=== PATIENT | female | born 1965 | race Caucasian/White ===

== ENCOUNTER 2017-06-28 21:48 | Emergency (ER) | payer MEDICAID ==
[~2017-06-28] VITALS: Ht 149.9 cm; Wt 61.7 kg
[~2017-06-28 21:48] MED LIST: CEPHALEXIN500 MG ORAL; NORCO 5-325 TA1 EACH ORAL; PHENAZOPYRIDIN200 MG ORAL
[2017-06-28] MEDS ORDERED: ZANTAC150 MG ORAL (21:58)
[2017-06-28] MEDS ORDERED: NAPROXEN500 M2 ORAL (21:58)
[2017-06-28 22:00] VITALS: BP 124/78
[2017-06-28 22:20] VITALS: BP 124/78
[2017-06-28] MEDS ORDERED: CYCLOBENZAPRINE10 MG ORAL (22:27)
[2017-06-28] MEDS ORDERED: IBUPROFEN600 MG ORAL (22:27)
--- NOTE | 2017-06-29 04:49 | Emergency Room Report ---
History of Present Illness General Chief Complaint: Back Pain-No Injury Source: Patient Present Illness HPI 52-year-old female presents to ED for evaluation. Patient states she is having back pain started yesterday. Status notes the left upper back, 9 out of 10, nonradiating. Worse with twisting and bending. Denies chest pain or shortness of breath. No other aggravating relieving factors. Denies any other associated symptoms Allergies: Coded Allergies: MORPHINE (Verified Allergy, Unknown, 06/28/17) Patient History Past Medical History: GERD Past Surgical History: none Pertinent Family History: none Social History: Denies: smoking, alcohol use, drug use Now: No Immunizations: UTD Reviewed Nursing Documentation: PMH: Agreed, PSxH: Agreed Nursing Documentation-PMH Past Medical History: No History, Except For Hx Gastrointestinal Problems: Yes - Gastritis Review of Systems All Other Systems: negative except mentioned in HPI Physical Exam Vital Signs Date Time Temp Pulse Resp B/P (MAP) Pulse Ox O2 Delivery O2 Flow Rate FiO2 06/28/17 21:54 97.9 81 15 129/80 99 Room Air Sp02 EP Interpretation: reviewed, normal General Appearance: no apparent distress, alert, GCS 15, non-toxic Head: normocephalic Eyes: bilateral eye normal inspection, bilateral eye PERRL ENT: normal ENT inspection Neck: full range of motion, supple, no bony tend, supple/symm/no masses Respiratory: chest non-tender, lungs clear, normal breath sounds, speaking full sentences Cardiovascular #1: regular rate, rhythm, no edema Gastrointestinal: normal inspection Rectal: deferred Genitourinary: no CVA tenderness, no vertebral tenderness Musculoskeletal: back normal, gait/station normal, normal range of motion, tender - paraspinal thoracic pain. no vertebral body tenderness Neurologic: alert, oriented x3, responsive, motor strength/tone normal, sensory intact, speech normal Psychiatric: normal inspection Skin: normal inspection Lymphatic: normal inspection Medical Decision Making Diagnostic Impression: Primary Impression: Muscle strain ER Course Hospital Course 52-year-old female presents ED complaining of upper back pain. No evidence of trauma Differential diagnoses include: pyelonephritis, kidney stone, muscle strain, Lspine fracture Clinical course Patient placed on stretcher. After initial history, physical exam reveals a middle-aged female in no acute distress there is no vertebral body tenderness. No reproducible chest wall pain. There is some paraspinal thoracic pain on the left side underneath the left shoulder blade. Consistent with muscular strain. Diagnosis - muscle strain Stable and discharged to home with prescription for Motrin, Flexeril. Followup with PMD. Return to ED if symptoms recur or worsen Last Vital Signs Date Time Temp Pulse Resp B/P (MAP) Pulse Ox O2 Delivery O2 Flow Rate FiO2 06/28/17 22:20 97.9 72 15 124/78 99 Room Air Status: improved Disposition: HOME, SELF-CARE Condition: Stable Scripts Cyclobenzaprine Hcl* (FLEXERIL*) 10 Mg Tablet 10 MG ORAL TID Y for Muscle Spasm, #20 TAB Prov: SLY TEE M.D. 06/28/17 Ibuprofen* (MOTRIN*) 600 Mg Tablet 600 MG ORAL Q8H Y for For Pain, #30 TAB 0 Refills Prov: SLY TEE M.D. 06/28/17 Referrals: NON PHYSICIAN (PCP) Patient Instructions: Chest Wall Pain, Vnix-ue-Deoh SLY TEE M.D. Jun 29, 2017 04:49
== END 2017-06-28 22:20 | disposition home or self-care (01) ==
LOC: EMR 22:18
DX: S29.012A Strain of muscle and tendon of back wall of thorax, initial encounter (principal); X50.9XXA Other and unspecified overexertion or strenuous movements or postures, initial encounter; Y92.9 Unspecified place or not applicable; K21.9 Gastro-esophageal reflux disease without esophagitis; Z87.19 Personal history of other diseases of the digestive system; Z88.5 Allergy status to narcotic agent
CPT/HCPCS: 99283

== ENCOUNTER 2017-07-15 18:15 | Emergency (ER) | payer MEDICAID ==
[~2017-07-15] VITALS: Ht 149.9 cm; Wt 62.6 kg
[~2017-07-15 18:15] MED LIST changes: +CYCLOBENZAPRINE10 MG ORAL; +IBUPROFEN600 MG ORAL; +NAPROXEN500 M2 ORAL; +ZANTAC150 MG ORAL
[2017-07-15] MEDS ORDERED: ZANTAC150 MG ORAL (18:24)
[2017-07-15] MEDS ORDERED: AMITRIPTYLINE25 MG ORAL (18:24)
[2017-07-15] MEDS ORDERED: Sodium Chloride 500ML 500 ML IV ONE (18:35)
[2017-07-15] MEDS ORDERED: Meclizine 25mg tab ORAL ONE (18:45)
[2017-07-15] MEDS ORDERED: Ketorolac 30mg Inj IV ONE (18:45)
[2017-07-15 19:11] VITALS: BP 145/92
[2017-07-15] MEDS ORDERED: AMOXICILLIN500 MG ORAL (19:51)
[2017-07-15] MEDS ORDERED: MECLIZINE HCL25 MG ORAL (19:51)
[2017-07-15] MEDS ORDERED: ZOFRAN ODT4 MG ORAL (19:51)
[2017-07-15 20:06] VITALS: BP 163/90
[2017-07-15 20:09] VITALS: BP 163/90
--- NOTE | 2017-07-16 14:15 | Emergency Room Report ---
History of Present Illness General Chief Complaint: Dizziness Source: Patient Present Illness HPI 52-year-old female presents to ED for evaluation. Patient presenting with dizziness times one day. Starting yesterday. room spinning sensation worse with sudden head turning and position change. Also complaining of right ear pain. Throbbing, 10 out of 10, nonradiating. Denies neck stiffness. Denies fevers or chills. Denies headache. Patient states similar episode happened her a few years ago. Was told that she had ear infection which triggered vertigo. Denies chest pain or shortness of breath. No other aggravating relieving factors. Denies any other associated symptom Allergies: Coded Allergies: MORPHINE (Verified Allergy, Unknown, 06/28/17) Patient History Past Medical History: GERD Past Surgical History: none Pertinent Family History: none Social History: Denies: smoking, alcohol use, drug use Last Menstrual Period: 06/28/17 Now: No Immunizations: UTD Reviewed Nursing Documentation: PMH: Agreed, PSxH: Agreed Nursing Documentation-PMH Past Medical History: No History, Except For Hx Gastrointestinal Problems: Yes - Gastritis Review of Systems All Other Systems: negative except mentioned in HPI Physical Exam Vital Signs Date Time Temp Pulse Resp B/P (MAP) Pulse Ox O2 Delivery O2 Flow Rate FiO2 07/15/17 18:20 98.5 84 21 145/92 99 Room Air 98.4 Sp02 EP Interpretation: reviewed, normal General Appearance: no apparent distress, alert, GCS 15, non-toxic Head: normocephalic, atraumatic Eyes: bilateral eye normal inspection, bilateral eye PERRL ENT: hearing grossly normal, normal pharynx, no angioedema, normal voice Neck: full range of motion, supple/symm/no masses Respiratory: chest non-tender, lungs clear, normal breath sounds, speaking full sentences Cardiovascular #1: regular rate, rhythm, no edema Cardiovascular #2: 2+ carotid (R), 2+ carotid (L), 2+ radial (R), 2+ radial (L) , 2+ dorsalis pedis (R), 2+ dorsalis pedis (L) Gastrointestinal: normal bowel sounds, non tender, soft, non-distended, no guarding, no rebound Rectal: deferred Genitourinary: normal inspection, no CVA tenderness Musculoskeletal: back normal, gait/station normal, normal range of motion, non- tender Neurologic: alert, oriented x3, responsive, sap crm developer III-XII nml as tested, motor strength/tone normal, sensory intact, cerebellar normal, normal gait, speech normal Psychiatric: judgement/insight normal, memory normal, mood/affect normal, no suicidal/homicidal ideation Reflexes: 3+ bicep (R), 3+ bicep (L), 3+ tricep (R), 3+ tricep (L), 3+ knee (R) , 3+ knee (L) Skin: normal color, no rash, warm/dry, well hydrated Lymphatic: no adenopathy Medical Decision Making Diagnostic Impression: Primary Impression: Otitis media Qualified Codes: H66.90 - Otitis media, unspecified, unspecified ear Additional Impression: Vertigo ER Course Hospital Course 52-year-old female presents to ED complaining of dizziness, right ear pain Differential diagnoses include: MO/unstable angina, SVT, A. fib, V. 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 After initial history, physical exam reveals a middle-aged female in no acute distress. There is no nuchal rigidity. Cranial nerves II through XII grossly intact. Cerebellar function intact. Vertigo does worsen with sudden head movement Right tympanic membrane cloudy, erythematous. Consistent with otitis media. Findings consistent with vertigo likely triggered by the ear infection. I ordered IV fluids, meclizine, Toradol, Zofran Upon reassessment patient states his symptoms have improved. I believe patient is safe for discharge I. I feel this is a highly complex case requiring extensive working including EKG/Rhythm strip, Xray/CT/US, Blood/urine lab work, repeat exams while in ED, and administration of strong opiates/narcotics for pain control, admission to hospital or close patient follow up. Diagnosis - vertigo, otitis media stable and discharged to home with prescription for meclizine, zofran, amoxicillin. Followup with PMD. Return to ED if symptoms recur or worsen Last Vital Signs Date Time Temp Pulse Resp B/P (MAP) Pulse Ox O2 Delivery O2 Flow Rate FiO2 07/15/17 20:09 97.6 78 16 163/90 99 Room Air 97.6 Status: improved Disposition: HOME, SELF-CARE Condition: Stable Scripts Amoxicillin* (AMOXIL*) 500 Mg Capsule 500 MG ORAL THREE TIMES A DAY for 10 Days, #30 CAP Prov: SLY TEE M.D. 07/15/17 Ondansetron Odt* (ZOFRAN ODT*) 4 Mg Tab.rapdis 4 MG ORAL Q6H Y for Nausea & Vomiting, #30 TAB 0 Refills Prov: SLY TEE M.D. 07/15/17 Meclizine Hcl* (MECLIZINE*) 25 Mg Tablet 25 MG ORAL THREE TIMES A DAY for 7 Days, TAB Prov: SLY TEE M.D. 07/15/17 Patient Instructions: Vertigo SLY TEE M.D. Jul 16, 2017 14:15
== END 2017-07-15 20:09 | disposition home or self-care (01) ==
LOC: EMR 18:30
DX: H66.91 Otitis media, unspecified, right ear (principal); R42 Dizziness and giddiness; Z88.5 Allergy status to narcotic agent
CPT/HCPCS: 96374; 96375; 99284; J1885; J2405

== ENCOUNTER 2017-11-08 20:53 | Emergency (ER) | payer MEDICAID ==
[~2017-11-08] VITALS: Ht 149.9 cm; Wt 62.6 kg
[~2017-11-08 20:53] MED LIST changes: +AMITRIPTYLINE25 MG ORAL; +AMOXICILLIN500 MG ORAL; +MECLIZINE HCL25 MG ORAL; +ZOFRAN ODT4 MG ORAL
[2017-11-08] MEDS ORDERED: fentaNYL 100 mcg/2 mL IV ONE (21:30)
--- NOTE | 2017-11-08 22:21 | Diagnostic Imaging Report ---
EXAM: XR Left Ankle Complete, 3 or More Views CLINICAL HISTORY: TRAUMA TECHNIQUE: Frontal, lateral and oblique views of the left ankle. COMPARISON: No relevant prior studies available. FINDINGS: Bones/joints: No acute displaced fracture or dislocation. Soft tissues: Soft tissue swelling. IMPRESSION: No acute displaced fracture or dislocation.
--- NOTE | 2017-11-08 23:00 | Emergency Room Report ---
History of Present Illness General Chief Complaint: Lower Extremity Injury Source: Patient, Medical Record Present Illness HPI Patient presents with left ankle pain. She missed a step and went to steps down and landed with her full weight on her left ankle and had an inversion injury. Chest pain on the outside of her ankle and towards the heel. There is also some bruising there. She denies loss of consciousness. She caught herself with her hand. The pain is severe at this time, throbbing worse when she has the ankle dependent and radiating somewhat into the lower leg. She rates the pain 10/10. She is not taking blood thinners at this time. She's not fractured or injured the ankle in the past. She states she is unable to ambulate at this time. She has a history of gastritis and in discussing treatment she states she can't take nonsteroidal anti-inflammatories. In addition she reports multiple allergies or adverse reactions to medications. Allergies: Coded Allergies: MORPHINE (Verified Allergy, Unknown, 06/28/17) Patient History Past Medical History: see triage record Social History: Denies: smoking Social History Narrative with daughter Last Menstrual Period: 10/13/2017 Now: No Reviewed Nursing Documentation: PMH: Agreed; PSxH: Agreed Nursing Documentation-PMH Past Medical History: No History, Except For Hx Hypertension: Yes Hx Gastrointestinal Problems: Yes - Gastritis Review of Systems Constitutional: Denies: fever Eye: Denies: blurred vision Cardiovascular: Denies: chest pain Gastrointestinal: Denies: abdominal pain Musculoskeletal: Reports: see HPI Skin: Reports: see HPI Neurological: Denies: numbness Hematologic/Lymphatic: Reports: see HPI Physical Exam Vital Signs Date Time Temp Pulse Resp B/P (MAP) Pulse Ox O2 Delivery O2 Flow Rate FiO2 11/08/17 20:57 98.3 77 20 148/76 97 Room Air 98.2 Sp02 EP Interpretation: reviewed, normal General Appearance: well appearing, no apparent distress, GCS 15 Head: normocephalic, atraumatic Eyes: bilateral eye normal inspection, bilateral eye PERRL ENT: hearing grossly normal, normal voice, moist mucus membranes Neck: full range of motion, supple, no bony tend Respiratory: chest non-tender, no respiratory distress, speaking full sentences Cardiovascular #1: regular rate, rhythm Cardiovascular #2: 2+ radial (L), 2+ dorsalis pedis (L) - Good capillary refill Gastrointestinal: normal inspection, soft Musculoskeletal: back normal, digits/nails normal, no calf tenderness, pelvis stable, swelling - Left lateral ankle however ligaments are stable. Neurologic: alert, motor strength/tone normal, sensory intact, speech normal Psychiatric: mood/affect normal Skin: hematoma - Lateral ankle near heel Medical Decision Making Diagnostic Impression: Primary Impression: Ankle sprain Qualified Codes: S93.412A - Sprain of calcaneofibular ligament of left ankle, initial encounter ER Course Patient presents with ankle injury after fall. Differential includes fracture, sprain, contusion. X-rays are indicated based on [place] ankle rules. The patient is complaining about severe pain and requesting a shot. She initially requested Demerol. I recommended Dilaudid however this is not available. Fentanyl was ordered. X-rays revealed no fracture but soft tissue swelling. An Gerard was applied and crutches given. Tension was excellent and neurovascular was checked by me and normal. The patient was improved with decreased pain. Follow-up was discussed with the patient along with treatment recommendations. Patient stable for outpatient observation and treatment. Other X-Ray Diagnostic Results Other X-Ray Diagnostic Results : # of Views/Limited Vs Complete: 3 View Indication: Other EP Interpretation: Yes Interpretation: no dislocation, no fractures, other - Soft tissue swelling Impression: Other Electronically Signed by: Electronically signed by Constantino Mayo MD Last Vital Signs Date Time Temp Pulse Resp B/P (MAP) Pulse Ox O2 Delivery O2 Flow Rate FiO2 11/08/17 23:03 97.6 78 18 132/74 98 Room Air 97.6 Status: improved Disposition: HOME, SELF-CARE Condition: Improved Scripts Hydrocodone Bit/Acetaminophen 5-325* (NORCO 5-325*) 1 Each Tablet 1 TAB ORAL Q6H PRN for For Pain, #14 TAB 0 Refills Prov: Constantino Mayo M.D. 11/08/17 Referrals: [facility],REFERRING (PCP) Constantino Mayo M.D. Nov 08, 2017 23:00
[2017-11-08 23:03] VITALS: BP 132/74
[2017-11-08] MEDS ORDERED: NORCO 5-325 TA1 EACH ORAL (23:03)
== END 2017-11-08 23:05 | disposition home or self-care (01) ==
LOC: EMR 21:02
DX: S93.402A Sprain of unspecified ligament of left ankle, initial encounter (principal); W10.9XXA Fall (on) (from) unspecified stairs and steps, initial encounter; Y92.9 Unspecified place or not applicable; Z88.5 Allergy status to narcotic agent; I10 Essential (primary) hypertension
CPT/HCPCS: 73610; 96374; 99283; J3010

== ENCOUNTER 2018-02-02 19:35 | Emergency (ER) | payer MEDICAID ==
[~2018-02-02] VITALS: Ht 149.9 cm; Wt 63.5 kg
[2018-02-02 19:40] VITALS: BP 140/80
[2018-02-02] MEDS ORDERED: Ketorolac 60mg Inj IM ONE (20:00)
[2018-02-02] MEDS ORDERED: Cyclobenzaprine 10mg Tab ORAL ONE (20:00)
--- NOTE | 2018-02-02 20:09 | Emergency Room Report ---
History of Present Illness General Chief Complaint: Back Pain-No Injury Source: Patient Present Illness HPI 52-year-old female with history of hypertension and gastritis, remote history of hysterectomy, presents with low back pain that started 1 day ago reports it was worse with any movement, denies urinary habit changes, denies nausea, vomiting, fever, and shortness of breath, pain anywhere in her body other than her low back, but it does radiate in every direction she reports, she denies any falls, injuries, she does report she sits for long hours and whenever she stands up it seems to hurt a lot then, she is tried Aleve without much relief today. His any fevers, IV drug use, numbness, tingling, weakness, trauma, incontinence. Allergies: Coded Allergies: MORPHINE (Verified Allergy, Unknown, 06/28/17) Patient History Past Medical History: see triage record Last Menstrual Period: September 2017 Now: No Reviewed Nursing Documentation: PMH: Agreed; PSxH: Agreed Nursing Documentation-PMH Past Medical History: No History, Except For Hx Hypertension: Yes Hx Gastrointestinal Problems: Yes - Gastritis Review of Systems All Other Systems: negative except mentioned in HPI Physical Exam Vital Signs Date Time Temp Pulse Resp B/P (MAP) Pulse Ox O2 Delivery O2 Flow Rate FiO2 02/02/18 19:39 97.4 86 16 140/80 100 Room Air 97.3 Sp02 EP Interpretation: reviewed, normal General Appearance: alert, non-toxic, mild distress Head: normocephalic Eyes: bilateral eye normal inspection, bilateral eye PERRL, bilateral eye EOMI ENT: normal ENT inspection, hearing grossly normal, normal pharynx, no angioedema, normal voice, moist mucus membranes Neck: normal inspection, full range of motion, supple, supple/symm/no masses Respiratory: chest non-tender, lungs clear, normal breath sounds, chest symmetrical, palpation of chest normal Cardiovascular #1: normal peripheral pulses, regular rate, rhythm Cardiovascular #2: 2+ radial (R), 2+ radial (L) Gastrointestinal: normal inspection, non tender, soft, no mass, no guarding, no rebound Rectal: deferred Genitourinary: normal inspection, no CVA tenderness Musculoskeletal: back normal, gait/station normal, normal range of motion, non- tender, no calf tenderness, Leslie's Sign negative Neurologic: alert, responsive, product development III-XII nml as tested, motor strength/tone normal, SLR negative - Positive bilaterally, sensory intact, speech normal Psychiatric: judgement/insight normal, memory normal, mood/affect normal, anxious Skin: normal color, no rash, warm/dry, normal turgor Lymphatic: no adenopathy Medical Decision Making Diagnostic Impression: Primary Impression: UTI (urinary tract infection) Additional Impressions: Muscle strain Back pain ER Course Patient found to have normal x-ray, but urinalysis consistent with infection, possible pyelonephritis even, but patient is well-appearing with no major medical comorbidities, other than hypertension, will discharge with antibiotics , analgesics, follow-up with PMD in 2-3 days for repeat urinalysis. Other X-Ray Diagnostic Results Other X-Ray Diagnostic Results : X-Ray ordered: L-spine # of Views/Limited Vs Complete: 3 View, Limited Indication: Pain EP Interpretation: Yes Interpretation: no dislocation, no soft tissue swelling, no fractures, nonspecific bowel gas, no sbo Impression: No acute disease Electronically Signed by: Matteo Painting MD Last Vital Signs Date Time Temp Pulse Resp B/P (MAP) Pulse Ox O2 Delivery O2 Flow Rate FiO2 02/02/18 19:40 97.3 86 16 140/80 100 Room Air 97.3 Disposition: HOME, SELF-CARE Condition: Stable MATTEO PAINTING M.D Feb 02, 2018 20:09
[2018-02-02 20:21] LABS: APPEARANCE,URINE CLOUDY; BILIRUBIN, URINE NEGATIVE (NEGATIVE); GLUCOSE, URINE (UA) 3+ (NEGATIVE); KETONES,URINE 1+ (NEGATIVE); LEUKOCYTE ESTERASE ,URINE 2+ (NEGATIVE); NITRITE,URINE NEGATIVE (NEGATIVE); PH,URINE 5 (4.5-8.0); PROTEIN,URINE 1+ (NEGATIVE); UROBILINOGEN,URINE 1 MG/DL (0.0-1.0)
[2018-02-02 20:31] LABS: COLOR,URINE YELLOW
[2018-02-02] MEDS ORDERED: CIPRO500 MG PO (21:32)
[2018-02-02] MEDS ORDERED: CYCLOBENZAPRINE10 MG ORAL (21:32)
[2018-02-02] MEDS ORDERED: IBUPROFEN600 MG ORAL (21:32)
[2018-02-02 21:47] VITALS: BP 131/88
--- NOTE | 2018-02-03 09:10 | Diagnostic Imaging Report ---
Indication: Back pain Technique: 3 views of the lumbar spine Comparison: None Findings: Bony alignment is normal. Vertebral body heights are preserved. The disc spaces are preserved. No acute fractures. No dislocations. There are cholecystectomy clips. Impression: No acute process
== END 2018-02-02 21:48 | disposition home or self-care (01) ==
LOC: EMR 20:16
DX: S39.012A Strain of muscle, fascia and tendon of lower back, initial encounter (principal); N39.0 Urinary tract infection, site not specified; M54.5 Low back pain; I10 Essential (primary) hypertension; Z90.710 Acquired absence of both cervix and uterus; Z88.5 Allergy status to narcotic agent; Y99.9 Unspecified external cause status; Y92.9 Unspecified place or not applicable
CPT/HCPCS: 72020; 81003; 87086; 96372; 99283

== ENCOUNTER 2019-03-19 19:22 | Emergency (ER) | payer MEDICAID ==
[~2019-03-19] VITALS: Ht 149.9 cm; Wt 62.6 kg
[~2019-03-19 19:22] MED LIST changes: +CIPRO500 MG PO
[2019-03-19] MEDS ORDERED: Bactrim-DS 1 tab ORAL ONE (19:45)
[2019-03-19] MEDS ORDERED: Cephalexin 500mg cap ORAL ONE (19:45)
[2019-03-19] MEDS ORDERED: Ketorolac 30mg Inj IM ONE (19:45)
[2019-03-19] MEDS ORDERED: HYDROcodone/Acetamin 5/325 tab ORAL ONE (20:00)
[2019-03-19 20:06] VITALS: BP 147/81
--- NOTE | 2019-03-19 20:06 | NUR ---
ED Nurse Note:pt. came with rightn upper leg insect bite and edema, given pain meds
--- NOTE | 2019-03-19 20:15 | Emergency Room Report ---
History of Present Illness General Chief Complaint: Skin Rash/Abscess Source: Patient Present Illness HPI 53 YO Female presents to the ED c/o Itching, swelling, and erythema of right inner thigh since last night. pt. reports feeling a painful insect bite/sting last night with some erythema. She reports upon awakening this am her symptoms have progressed. She states significant tenderness to the lightest of touch. Pt. denies fevers, chills or swollen tender lymph nodes. Denies lesions/rashes elsewhere on the body. Denies new medications or body washes or creams. Denies swelling of the lips, tongue , throat or airway. Denies wheezing, or shortness of breath. Denies recent travel, recent illness or ill contacts. denies blisters, oral lesions, or sloughing of the skin. Allergies: Coded Allergies: MORPHINE (Verified Allergy, Unknown, 06/28/17) Patient History Past Medical History: see triage record Past Surgical History: none Pertinent Family History: none Now: No Reviewed Nursing Documentation: PMH: Agreed; PSxH: Agreed Nursing Documentation-PMH Past Medical History: No History, Except For Hx Hypertension: Yes Hx Gastrointestinal Problems: Yes - Gastritis Review of Systems All Other Systems: negative except mentioned in HPI Physical Exam Vital Signs Date Time Temp Pulse Resp B/P (MAP) Pulse Ox O2 Delivery O2 Flow Rate FiO2 03/19/19 19:24 86.0 88 22 147/81 (103) 97 Room Air Sp02 EP Interpretation: reviewed, normal General Appearance: alert, GCS 15, non-toxic, mild distress Head: normocephalic, atraumatic Eyes: bilateral eye normal inspection, bilateral eye PERRL ENT: hearing grossly normal, normal pharynx, no angioedema, normal voice Neck: full range of motion Respiratory: lungs clear, normal breath sounds, no wheezing, speaking full sentences Cardiovascular #1: regular rate, rhythm, no edema Musculoskeletal: back normal, gait/station normal, normal range of motion, non- tender Neurologic: alert, oriented x3, responsive, motor strength/tone normal, sensory intact, normal gait, speech normal, grossly normal Psychiatric: judgement/insight normal Skin: other - 3.5 inch diameter localized area of erythema , tenderness, and warmth. no palpable fluctuance, no blisters, eschar or crusts. no LAD. Lymphatic: no adenopathy Medical Decision Making PA Attestation Dr. Bustamante is my supervising Physician whom patient management has been discussed with. Diagnostic Impression: Primary Impression: Cellulitis Qualified Codes: L03.115 - Cellulitis of right lower limb Additional Impression: Insect bite Qualified Codes: S70.361A - Insect bite (nonvenomous), right thigh, initial encounter; W57.XXXA - Bitten or stung by nonvenomous insect and other nonvenomous arthropods, initial encounter ER Course 53 YO Female presents to the ED c/o Itching, swelling, and erythema of right inner thigh since last night. pt. reports feeling a painful insect bite/sting last night with some erythema. She reports upon awakening this am her symptoms have progressed. She states significant tenderness to the lightest of touch. Pt. denies fevers, chills or swollen tender lymph nodes. Denies lesions/rashes elsewhere on the body. Denies new medications or body washes or creams. Denies swelling of the lips, tongue , throat or airway. Denies wheezing, or shortness of breath. Denies recent travel, recent illness or ill contacts. denies blisters, oral lesions, or sloughing of the skin Ddx considered but are not limited to cellulitis, scabies, insect bites, tic bites, spider bites, contact dermatitis, Drug reaction, allergic reaction, fungal infection, lice. Vital signs: are WNL, pt. is afebrile H&PE are most consistent with insect bite with moderate secondary bacterial infection.-Of the right inner thigh, no palpable fluctuance. ORDERS: none required at this time, the diagnosis is clinical ED INTERVENTIONS: -Keflex PO -Bactrim DS -Toradol IM -Walls PO Pt. to keep close eye for worsening of her symptoms, She was given strict ED return precautions. DISCHARGE: At this time pt. is stable for d/c to home. Will provide printed patient care instructions, and any necessary prescriptions. Care plan and follow up instructions have been discussed with the patient prior to discharge. Last Vital Signs Date Time Temp Pulse Resp B/P (MAP) Pulse Ox O2 Delivery O2 Flow Rate FiO2 03/19/19 20:06 86.0 80 22 147/81 97 Room Air Disposition: HOME, SELF-CARE Condition: Stable Scripts Ibuprofen* (MOTRIN*) 600 Mg Tablet 600 MG ORAL THREE TIMES A DAY, #30 TAB 0 Refills Prov: Barr,Sue PA 03/19/19 Hydrocodone Bit/Acetaminophen (HYDROCODON-ACETAMINOPHEN 5-300) 1 Each Tablet 1 EACH PO Q6HR, #6 TAB Prov: Sue Barr 03/19/19 Sulfamethoxazole/Trimethoprim Ds Tablet* (SULFAMETHOXAZOLE-TMP DS TABLET*) 1 Each Tablet 1 TAB ORAL TWICE A DAY for 7 Days, #14 TAB Prov: Sue Barr 03/19/19 Cephalexin* (KEFLEX*) 500 Mg Capsule 500 MG ORAL EVERY 12 HOURS for 7 Days, #14 CAP 0 Refills Prov: Sue Barr 03/19/19 Referrals: NON PHYSICIAN (PCP) Patient Instructions: Cellulitis, [id number], Insect Bite, [id number] Additional Instructions: Take medications as directed. Do not drink alcohol, drive, or operate heavy machinery while taking Walls as this may cause drowsiness. Follow up with a Primary Care Provider in 3-5 days, even if your symptoms have resolved. --Please review list of primary care clinics, if you do not already have a primary care provider Return sooner to ED if new symptoms occur, or current symptoms become worse. - Please note that this Emergency Department Report was dictated using [employer] processing plant operator technology software, occasionally this can lead to erroneous entry secondary to interpretation by the dictation equipment. Sue Barr Mar 19, 2019 20:15
[2019-03-19] MEDS ORDERED: CEPHALEXIN500 MG ORAL (20:17)
[2019-03-19] MEDS ORDERED: SULFAMETHOXAZO1 EAC2 ORAL (20:17)
[2019-03-19] MEDS ORDERED: HYDROCODON-ACE1 EA18 PO (20:17)
[2019-03-19] MEDS ORDERED: IBUPROFEN600 MG ORAL (20:17)
[2019-03-19 20:30] VITALS: BP 147/81
--- NOTE | 2019-03-19 20:30 | NUR ---
ER DISCHARGE NOTE: Patient is cleared to be discharged per ERMD, pt is aox4, on room air, with stable vital signs. pt was given dc and prescription instructions, pt was able to verbalize understanding, pt is able to ambulate with steady gait. pt took all belongings.
== END 2019-03-19 20:30 | disposition home or self-care (01) ==
LOC: EMR 20:06
DX: S70.361A Insect bite (nonvenomous), right thigh, initial encounter (principal); L03.115 Cellulitis of right lower limb; I10 Essential (primary) hypertension; Z88.6 Allergy status to analgesic agent; W57.XXXA Bitten or stung by nonvenomous insect and other nonvenomous arthropods, initial encounter; Y92.9 Unspecified place or not applicable
CPT/HCPCS: 96372; J1885; Z7502; 99283

== ENCOUNTER 2020-02-14 17:17 | Emergency (ER) | payer MEDICAID ==
[~2020-02-14] VITALS: Ht 149.9 cm; Wt 65.8 kg
[~2020-02-14 17:17] MED LIST changes: +HYDROCODON-ACE1 EA18 PO; +SULFAMETHOXAZO1 EAC2 ORAL
[2020-02-14 17:35] VITALS: BP 132/87
[2020-02-14] MEDS ORDERED: Ketorolac 30mg Inj IM ONE (17:45)
[2020-02-14] MEDS ORDERED: VOLTAREN100 G1 TP (18:20)
[2020-02-14] MEDS ORDERED: TYLENOL EXTRA500 MG ORAL (18:20)
--- NOTE | 2020-02-14 18:20 | Emergency Room Report ---
History of Present Illness General Chief Complaint: Edema Present Illness HPI 54-year-old female with history of hypertension currently controlled lateral feet pain is been ongoing for 1 month. Patient reports x-rays were done by primary doctor, Dr. Parker her primary doctor patient was put on Lasix 20 mg and prednisone shot was given in both feet. Patient reports that the pain got worse since the shot was given by primary doctor last week Patient cannot take PO ibuprofen family by mouth as it bothers her stomach. Denies any fall or injury, denies any calf tenderness. Denies any chest pain shortness of breath. Denies tingling or numbness. Patient is neurovascular intact. No pitting edema is noted. Chest pain shortness of breath. Has not taken medication today for symptom relief. Allergies: Coded Allergies: MORPHINE (Verified Allergy, Unknown, 06/28/17) COVID-19 Screening Contact w/high risk pt: No Experienced COVID-19 symptoms?: No COVID-19 Testing performed PROPOSAL DIRECTOR: No Patient History Past Medical History: see triage record Past Surgical History: none Pertinent Family History: none Last Menstrual Period: na Now: No Immunizations: UTD Reviewed Nursing Documentation: PMH: Agreed; PSxH: Agreed Nursing Documentation-PMH Hx Hypertension: Yes Hx Gastrointestinal Problems: Yes - Gastritis Review of Systems All Other Systems: negative except mentioned in HPI Physical Exam Vital Signs Date Time Temp Pulse Resp B/P (MAP) Pulse Ox O2 Delivery O2 Flow Rate FiO2 02/14/20 17:28 97.3 88 16 136/90 (105) 98 Room Air 02/14/20 17:35 99 Sp02 EP Interpretation: reviewed, normal General Appearance: no apparent distress, alert, GCS 15, non-toxic Head: normocephalic, atraumatic Eyes: bilateral eye normal inspection, bilateral eye PERRL ENT: normal ENT inspection Neck: full range of motion, supple/symm/no masses Respiratory: chest non-tender, lungs clear, normal breath sounds, no rhonchi, no respiratory distress, no retraction, speaking full sentences Cardiovascular #1: regular rate, rhythm, no edema, no murmur Cardiovascular #2: 2+ dorsalis pedis (R), 2+ dorsalis pedis (L) Gastrointestinal: normal bowel sounds, non tender, soft, non-distended, no guarding, no rebound Genitourinary: no CVA tenderness Musculoskeletal: back normal, normal range of motion, no calf tenderness, pelvis stable, gait/station normal, non-tender Neurologic: alert, motor strength/tone normal, oriented x3, sensory intact, r esponsive, speech normal Psychiatric: normal inspection, judgement/insight normal Skin: no rash Lymphatic: no adenopathy Medical Decision Making PA Attestation All my diagnosis and treatment plans were reviewed ad discussed with my supervising physician Dr. Bustamante Diagnostic Impression: Primary Impression: Arthritis Additional Impression: Pedal edema ER Course 54-year-old female with history of hypertension currently controlled lateral fee t pain is been ongoing for 1 month. Patient reports x-rays were done by primary doctor, Dr. Parker her primary doctor patient was put on Lasix 20 mg and prednisone shot was given in both feet. Patient reports that the pain got worse since the shot was given by primary doctor last week Patient cannot take PO ibuprofen family by mouth as it bothers her stomach. Denies any fall or injury, denies any calf tenderness. Denies any chest pain shortness of breath. Denies tingling or numbness. Patient is neurovascular intact. No pitting edema is noted. Chest pain shortness of breath. Has not taken medication today for symptom relief. Ddx considered but are not limited to: CHF, PVD, foot fracture, foot sprain, foot contusion, foot strain Vital signs: are WNL, pt. is afebrile H&PE are most consistent with: Arthritis, pedal edema ORDERS: foot Xray, chest x-ray, Tylenol, Voltaren gel ED INTERVENTIONS: Toradol IM DISCHARGE: At this time pt. is stable for d/c to home. Will provide printed patient care instructions, and any necessary prescriptions. Care plan and follow up instructions have been discussed with the patient prior to discharge. Patient take medication as directed, follow-up primary care provider for further evaluation and vascular studies of both legs that appears to be chronic. No further evaluation needed at this time. I have low suspicion for DVT as patient does not have any calf tenderness, has no risk factors for developing DVT and appears to complain of pain and swelling both feet. Denies any calf pain. Denies any sedentary lifestyle reports that she is often on her feet. Patient agrees to follow primary doctor in this regard and recently physical therapy further evaluation. Patient return to emergency room if worsening symptoms. Chest X-Ray Diagnostic Results Chest X-Ray Diagnostic Results : Chest X-Ray Ordered: Yes # of Views/Limited/Complete: 1 View Indication: Chest Pain EP Interpretation: Yes PA Xray: Interpretation reviewed, by supervising MD, and agrees with findings. Interpretation: no consolidation, no effusion, no pneumothorax, no acute cardiopulmonary disease Impression: No acute disease Electronically Signed by: Addison Mendez PA-C Other X-Ray Diagnostic Results Other X-Ray Diagnostic Results #1: X-Ray ordered: Left foot x-ray # of Views/Limited Vs Complete: 2 View Indication: Pain EP Interpretation: Yes PA Xray: Interpretation reviewed, by supervising MD, and agrees with findings. Interpretation: no dislocation, no soft tissue swelling, no fractures Impression: No acute disease Electronically Signed by: Addison Mendez PA-C Other X-Ray Diagnostic Results #2: X-Ray ordered: Right foot x-ray # of Views/Limited Vs Complete: 2 View Indication: Pain PA Xray: Interpretation reviewed, by supervising MD, and agrees with findings. Interpretation: no dislocation, no soft tissue swelling, no fractures Impression: No acute disease Electronically Signed by: Addison Mendez PA-C Last Vital Signs Date Time Temp Pulse Resp B/P (MAP) Pulse Ox O2 Delivery O2 Flow Rate FiO2 02/14/20 17:35 92 17 Room Air 99 02/14/20 17:35 97.3 132/87 99 Disposition: HOME, SELF-CARE Condition: Stable Scripts Diclofenac Sodium (VOLTAREN) 100 Gm Gel..gram. 2 GM TP TID, #100 GM Prov: Addison Horn 02/14/20 Acetaminophen* (TYLENOL EXTRA STRENGTH*) 500 Mg Tablet 500 MG ORAL Q8H PRN for Prn Headache/Temp > 101, #30 TAB 0 Refills Prov: Addison Horn 02/14/20 Patient Instructions: Arthritis, [id number], Edema, [id number] Additional Instructions: Take medication as directed, follow-up with primary care provider regarding arthritis, referral for physical therapy may be needed, elevate legs, also follow-up with primary doctor regarding vascular studies regarding your legs and blood flow. If worsening symptoms return to the emergency room Addison Horn Feb 14, 2020 18:20
[2020-02-14 18:30] VITALS: BP 129/86
--- NOTE | 2020-02-15 12:48 | Diagnostic Imaging Report ---
Indication: Reason For Exam: PAIN Technique: Single AP view of the chest. Comparison: Chest radiograph Dated 04/26/2015 Findings: The cardiomediastinal silhouette is within normal limits. There is no focal consolidation, pneumothorax or pleural effusion. Osseous structures demonstrate no acute abnormality. IMPRESSION: No radiographic evidence of acute cardiopulmonary process.
--- NOTE | 2020-02-15 13:23 | Diagnostic Imaging Report ---
INDICATION: Foot swelling TECHNIQUE: XRAY Foot Complete L Multiple views of the None were obtained COMPARISON: None FINDINGS: There is no acute fracture or dislocation. Joint spaces are maintained. There is mild diffuse soft tissue swelling. IMPRESSION: No acute fracture or dislocation.
--- NOTE | 2020-02-15 13:25 | Diagnostic Imaging Report ---
INDICATION: Foot pain TECHNIQUE: XRAY Foot Complete R - Multiple views of the right foot were obtained COMPARISON: None FINDINGS: There is no acute fracture or dislocation. There is mild first metatarsophalangeal joint osteoarthrosis. There is mild diffuse soft tissue swelling. IMPRESSION: No acute fracture or dislocation.
== END 2020-02-14 18:31 | disposition home or self-care (01) ==
LOC: EMR 17:45
DX: M19.071 Primary osteoarthritis, right ankle and foot (principal); R07.9 Chest pain, unspecified; I10 Essential (primary) hypertension; Z88.6 Allergy status to analgesic agent; R60.0 Localized edema; M25.572 Pain in left ankle and joints of left foot; M25.571 Pain in right ankle and joints of right foot
CPT/HCPCS: 71045; 73630; 96372; J1885; Z7502; 99284